=== PATIENT | female | born 1945 | race Caucasian/White ===

== ENCOUNTER 2017-01-10 11:55 | Emergency (ER) | payer MEDICARE, OTHER ==
--- NOTE | ~2017-01-10 | EKG ---
PATIENT: JU BATES UNIT #: [id number] Ventricular Rate: 96 BPM Atrial Rate: 104 BPM P-R Interval: 80 ms QRS Duration: 172 ms Q-T Interval: 392 ms QTC Calculation(Bezet): 495 ms P [place]: 4 degrees Calculated R [place]: -63 degrees Calculated T [place]: 110 degrees Diagnosis Line: Electronic ventricular pacemaker Diagnosis Line: When compared with ECG of 01-JUL-2016 10:03, Diagnosis Line: Wide QRS rhythm has replaced Electronic Diagnosis Line: ventricular pacemaker Diagnosis Line: Confirmed by BRENNEN TINAJERO MD ([id number]) on 01/12/2017 Diagnosis Line: 6:02:15 PM INTERPRETING MD: LIOR MILAN
--- NOTE | ~2017-01-10 | CR72 ---
[facility]. [facility] [place] A Service of [facility] & [facility] RADIOLOGY TEXT RESULTS PATIENT: JU BATES LOCATION: SED : 49 UNIT #: [id number] AGE: [address]: Josh Marinelli MD SEX: F ORDER DR: [id number] [address] [address] [id number] MR#: [id number] Acc #: [id number] NAME: JU BATES : 1945 SEX: F STUDY DATE/TIME: 01/10/2017 12:23 UNIT: SED ROOM: STUDY DESCRIPTION: CR Chest Single View Portable Attending Physician: Josh Marinelli M.D. Ordering Physician: Josh Marinelli M.D. Primary Care Physician: Bernardo Dooley M.D. MEDICAL IMAGING REPORT This report is preliminary unless electronic signature is present. EXAM AP portable chest 01/10/2017. HISTORY 71-year-old female in the ED complaining of 2-day history of chest pain. TECHNIQUE AP portable upright chest x-ray. FINDINGS The heart size and pulmonary vascularity are within normal limits. Low lung volumes with minimal right basilar atelectasis. The lungs appear clear. Benign calcified granuloma right mid-lung. Cardiac pacemaker. IMPRESSION No active disease. Dictated by... Roland Griffith M.D. THIS IS AN ELECTRONICALLY VERIFIED REPORT Roland Griffith M.D. at 01/11/2017 5:55 AM DAVE/brian TD: 01/10/2017 15:26 JOB #: [id number] MEDICAL IMAGING REPORT
[~2017-01-10 11:55] MED LIST: DESYREL50 MG; KCL PO; LYRICA75 MG; METOPROLOL SUCC25 MG; MORPHINE SULFAT15 MG; PRADAXA150 MG; RANITIDINE HCL150 M1; TOLTERODINE TART4 MG
[2017-01-10 12:13] LABS: BASOPHIL# 0.1 X10e3 (0.0-0.3); EOSINOPHIL# 0.1 X10e3 (0.0-0.7); EOSINOPHIL% 1.5 % (0.0-7.0); HEMOGLOBIN 15.3 gm/dl (12.0-16.0); LYMPHOCYTE# 1.2 X10e3 (1.0-3.5); LYMPHOCYTE% 17.9 % (17.0-45.0); MEAN CELL VOLUME 88.6 FL (83-96); MEAN CORPUSCULAR HEMOGLOBIN 30.2 PG (28-34); MEAN CORPUSCULAR HGB CONC 34.1 g/dL (30-36); MEAN PLATELET VOLUME 9.4 FL (6.5-11.5); MONOCYTE# 0.4 X10e3 (0.0-1.0); MONOCYTE% 5.5 % (3.0-12.0); NEUTROPHIL# 4.9 X10e3 (1.5-7.1); NEUTROPHIL% 74.1 % (40.0-75.0); PLATELET COUNT 140 X10e3 (140-420); RED BLOOD COUNT 5.07 X10e6 (3.90-5.30); RED CELL DISTRIBUTION WIDTH 12.6 % (11.0-15.5); WHITE BLOOD COUNT 6.7 X10e3 (4.0-10.5)
[2017-01-10 12:14] LABS: DIFF IND NO
[2017-01-10 12:27] LABS: POC - CKMB 1.1 ng/mL (0.0-7.9); POC - MYOGLOBIN 63.3 ng/mL (0.0-169.0); POC - TROPONIN <0.05 ng/mL (<=0.05)
[2017-01-10 12:35] LABS: ALKALINE PHOSPHATASE 92 U/L (32-92); ALT (SGPT) 9 U/L (10-40); AST (SGOT) 22 U/L (10-42); BILIRUBIN,TOTAL 1.5 mg/dL (0.2-2.0); BLOOD UREA NITROGEN 14 mg/dL (9-23); CALCIUM SERUM 9.1 mg/dL (8.4-10.2); CARBON DIOXIDE 24 mmol/L (22-31); CHLORIDE 109 mmol/L (100-111); CREATININE SERUM 0.8 mg/dL (0.6-1.4); GLOM FILT RATE Estimated ABOVE60 mL/min (>60); GLUCOSE FASTING 118 mg/dL (70-110); POTASSIUM 4.5 mmol/L (3.5-5.1); PROTEIN TOTAL SERUM 7.8 g/dL (6.0-8.3); SODIUM 140 mmol/L (135-145)
[2017-01-10 13:14] LABS: INR 1.3; PROTHROMBIN TIME (PATIENT) 14.9 SECONDS (9.5-12.4)
[2017-01-10 13:21] LABS: PARTIAL THROMBOPLASTIN TIME 56.8 SECONDS (25.6-38.1)
[2017-01-10 13:23] LABS: URINE SOURCE CLEAN CATCH
[2017-01-10 13:26] LABS: URINE APPEARANCE CLEAR; URINE BILIRUBIN NEG (NEG); URINE BLOOD NEG (NEG); URINE COLOR YELLOW; URINE GLUCOSE NEG (NORM); URINE KETONE NEG (NEG); URINE LEUKOCYTE ESTERASE NEG (NEG); URINE NITRATE POS (NEG); URINE PH 5.5 (5-8); URINE PROTEIN NEG (NEG); URINE SPECIFIC GRAVITY >=1.030 (1.003-1.035); URINE UROBILINOGEN 0.2 MG/DL (NORM)
[2017-01-10 13:28] LABS: MICRO INDICATED? YES
[2017-01-10 13:32] LABS: CULTURE INDICATED? YES; URINE BACTERIA 2+ (NEG); URINE MUCUS PRESENT; URINE RBC NEG /[HPF] (0-2); URINE SQUAMOUS EPITHELIAL CELL OCCAS /[HPF]
[2017-01-10 14:20] LABS: POC - CKMB <1.0 ng/mL (0.0-7.9); POC - MYOGLOBIN 47.2 ng/mL (0.0-169.0); POC - TROPONIN <0.05 ng/mL (<=0.05)
[2017-01-13] MEDS ORDERED: MACROBID100 M1 PO (14:46)
== END 2017-01-10 15:00 | disposition home or self-care (01) ==
LOC: SED 11:55
PROVIDERS: Emergency Medicine
DX: R07.89 Other chest pain (principal); I11.0 Hypertensive heart disease with heart failure; I50.9 Heart failure, unspecified; K21.9 Gastro-esophageal reflux disease without esophagitis; Z79.899 Other long term (current) drug therapy
CPT/HCPCS: 36415; 71010; 80053; 81003; 82553; 83874; 83880; 84484; 85025; 85610; 85730; 87086; 87088; 87186; 93005; 99284